=== PATIENT | female | born 2000 | race Caucasian/White ===

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

== ENCOUNTER 2020-08-27 21:02 | Emergency (ER) | payer OTHER ==
[~2020-08-27] VITALS: Ht 167.6 cm; Wt 72.6 kg
[2020-08-27 21:18] VITALS: BP 125/81
[2020-08-27] MEDS ORDERED: ACET-2619 PO (22:14)
[2020-08-27] MEDS ORDERED: ONDA4TAB PO (22:14)
[2020-08-27 22:32] VITALS: BP 125/81
== END 2020-08-27 22:32 | disposition home or self-care (01) ==
LOC: MED 21:02
DX: S09.90XA Unspecified injury of head, initial encounter (principal); R11.10 Vomiting, unspecified; Z79.899 Other long term (current) drug therapy; W22.8XXA Striking against or struck by other objects, initial encounter; Y93.89 Activity, other specified; Y92.89 Other specified places as the place of occurrence of the external cause; Y99.0 Civilian activity done for income or pay
CPT/HCPCS: 99283